=== PATIENT | female | born 1970 | race Caucasian/White ===

== ENCOUNTER 2020-08-26 14:08 | Emergency (ER) | payer OTHER ==
[~2020-08-26] VITALS: Ht 157.5 cm; Wt 59.9 kg
[2020-08-26 14:13] VITALS: BP 156/76
--- NOTE | 2020-08-26 14:27 | NUR ---
50 Y/O FEMALE C/O VAGINAL BLEEDING FOR 22 DAYS, PT STATES THE BLEEDING IS VERY LIGHT SPOTTING. PT WAS SEEN BY HER PCP AND WAS GIVEN AN INJECTION (UNKNOWN WHAT TYPE) ONE MONTH AGO AND BLEEDING STOPPED FOR A SHORT PERIOD BUT IS NOW REOCCURRING. DENIES ANY PAIN OR DIZZINESS. MEDHX: ANEMIA NKA
--- NOTE | 2020-08-26 14:50 | NUR ---
BLOOD LABS COLLCTED AND SENT TO LAB
[2020-08-26 15:37] LABS: BASOPHILS # (AUTO) 0.1 K/uL (0.00-0.22); BASOPHILS % (AUTO) 0.7 % (0.0-2.0); EOSINOPHILS # (AUTO) 0.1 K/uL (0-0.4); EOSINOPHILS % (AUTO) 1.6 % (0.0-4.0); HEMATOCRIT 33.7 % (36-48); LYMPHOCYTES # (AUTO) 1.2 K/uL (2.5-16.5); LYMPHOCYTES % (AUTO) 15.2 % (20.5-51.1); MEAN CORPUSCULAR HEMOGLOBIN 30 pg (27-31); MEAN CORPUSCULAR HGB CONC 33 g/dL (33-37); MEAN CORPUSCULAR VOLUME 93.3 fL (80-94); MONOCYTES # (AUTO) 0.3 K/uL (0.8-1.0); MONOCYTES % (AUTO) 3.8 % (1.7-9.3); NEUTROPHILS # (AUTO) 6.2 K/uL (1.8-7.7); NEUTROPHILS % (AUTO) 78.7 % (42.2-75.2); PLATELET COUNT (AUTO) 285 K/uL (140-450); RED BLOOD CELL COUNT(AUTO) 3.61 MIL/uL (4.20-5.40); RED CELL DISTRIBUTION WIDTH 15.4 % (11.6-13.7); WHITE BLOOD COUNT (AUTO) 7.9 K/uL (4.8-10.8)
--- NOTE | 2020-08-26 16:02 | NUR ---
Pelvic exam performed by KIMBER HOLLINS with JAYASHREE RN at bedside for entire examination. Patient tolerated procedure WELL. Patient assisted to position of comfort after examination.
[2020-08-26] MEDS ORDERED: MEDR10TA PO (16:04)
[2020-08-26 16:23] VITALS: BP 156/76
--- NOTE | 2020-08-26 16:23 | NUR ---
Patient discharged with v/s stable. Written and verbal after care instructions given and explained. Patient alert, oriented and verbalized understanding of instructions. Ambulatory with steady gait. All questions addressed prior to discharge. ID band removed. Patient advised to follow up with PMD. Rx of MEDROXYPROGESTERONE given. Patient educated on indication of medication including possible reaction and side effects. Opportunity to ask questions provided and answered.
== END 2020-08-26 16:23 | disposition home or self-care (01) ==
LOC: MED 14:08
DX: N93.8 Other specified abnormal uterine and vaginal bleeding (principal); D64.9 Anemia, unspecified
CPT/HCPCS: 36415; 81025; 85025; 99284